=== PATIENT | male | born 1955 | race Caucasian/White ===

== ENCOUNTER → 2017-01-02 | Outpatient (REF) | payer BC ==
[2017-01-02 13:45] LABS: MEAN CORPUSCULAR HEMOGLOBIN 31.5 pg (27.0-33.0); MEAN CORPUSCULAR HGB CONC 33.7 g/dl (32.0-36.5); MEAN CORPUSCULAR VOLUME 93.6 fl (80.0-96.0); RED CELL DISTRIBUTION WIDTH 13.2 % (11.5-14.5); WHITE BLOOD COUNT 6.3 10^3/uL (4.0-10.0)
[2017-01-02 14:23] LABS: ALBUMIN 3.7 GM/DL (3.2-5.2); ALBUMIN/GLOBULIN RATIO 1.06 (1.00-1.93); ALKALINE PHOSPHATASE 57 U/L (45-117); ALT/SGPT 28 U/L (12-78); ANION GAP 5 MEQ/L (8-16); AST/SGOT 18 U/L (15-37); BILIRUBIN,TOTAL 0.6 MG/DL (0.2-1.0); BLOOD UREA NITROGEN 16 MG/DL (7-18); CALCIUM LEVEL 8.8 MG/DL (8.5-10.1); CARBON DIOXIDE LEVEL 32 MEQ/L (21-32); CHLORIDE LEVEL 102 MEQ/L (98-107); CHOLESTEROL LEVEL 180 MG/DL (<200); CREATININE FOR GFR 0.97 MG/DL (0.70-1.30); FREE T4 1.09 NG/DL (0.76-1.46); GLOMERULAR FILTRATION RATE > 60.0 (>56); GLUCOSE, FASTING 155 MG/DL (70-105); POTASSIUM SERUM 4.9 MEQ/L (3.5-5.1); SODIUM LEVEL 139 MEQ/L (136-145); TOTAL PROTEIN 7.2 GM/DL (6.4-8.2); TRIGLYCERIDES LEVEL 79 MG/DL (<150)
== END ==
LOC: M SFHCADAM 09:26
PROVIDERS: ATTEND Family Medicine
DX: E78.2 Mixed hyperlipidemia (principal); E03.4 Atrophy of thyroid (acquired); Z12.5 Encounter for screening for malignant neoplasm of prostate; I10 Essential (primary) hypertension
CPT/HCPCS: 80053; 80061; 84439; 84443; 85027; G0103

== ENCOUNTER → 2017-10-07 | Outpatient (CLI) | payer BC | LOC: M ADAMS 12:32 | DX: M75.40 Impingement syndrome of unspecified shoulder (principal); M19.011 Primary osteoarthritis, right shoulder | CPT/HCPCS: 73030; 85652 ==

== ENCOUNTER → 2017-10-07 | Outpatient (REF) | payer BC ==
[2017-10-07 20:11] LABS: RHEUMATOID FACTOR QUANT < 10.0 IU/ML (<15.0)
[2017-10-07 20:21] LABS: ERYTHROCYTE SEDIMENTATION RATE 6 mm/hr (0-20)
[2017-10-10 00:37] LABS: ANA (HEP2) Negative (.)
== END ==
LOC: M SFHCADAM 12:28
DX: M75.40 Impingement syndrome of unspecified shoulder (principal)
CPT/HCPCS: 85652

== ENCOUNTER → 2019-01-12 | Outpatient (REF) | payer BC | LOC: M LABDRAWP 08:19 | PROVIDERS: ATTEND Internal Medicine Endocrinology, Diabetes & Metabolism | DX: E06.3 Autoimmune thyroiditis (principal) ==

== ENCOUNTER → 2019-01-12 | Outpatient (REF) | payer BC ==
[2019-01-12 11:06] LABS: CHOLESTEROL RISK RATIO 2.764 (<5); FREE T4 0.94 NG/DL (0.76-1.46); THYROID STIMULATING HORMONE 2.66 uIU/ML (0.358-3.740)
[2019-01-12 11:09] LABS: MALB URINE SIEMENS < 5.0 MG/L; MAU/CREAT RATIO 4.5 MCG/MG (0.0-30.0)
== END ==
LOC: M SFHCPLAZ 08:17
PROVIDERS: ATTEND Family Medicine
DX: E03.4 Atrophy of thyroid (acquired) (principal); E10.9 Type 1 diabetes mellitus without complications; E78.2 Mixed hyperlipidemia; Z12.5 Encounter for screening for malignant neoplasm of prostate
CPT/HCPCS: 36415; 80061; 82043; 83036; 84439; 84443; G0103

== ENCOUNTER → 2019-11-25 | Outpatient (REF) | payer BC ==
[2019-11-25 14:16] LABS: ALBUMIN 3.7 GM/DL (3.2-5.2); ALT/SGPT 24 U/L (12-78); BLOOD UREA NITROGEN 21 MG/DL (7-18); CALCIUM LEVEL 9.2 MG/DL (8.8-10.2); CARBON DIOXIDE LEVEL 30 MEQ/L (21-32); CHLORIDE LEVEL 103 MEQ/L (98-107); CHOLESTEROL LEVEL 193 MG/DL (<200); CHOLESTEROL RISK RATIO 2.573 (<5); CREATININE FOR GFR 1.08 MG/DL (0.70-1.30); FREE T4 1.15 NG/DL (0.76-1.46); GLOMERULAR FILTRATION RATE > 60.0 (>49); GLUCOSE, FASTING 61 MG/DL (70-100); HDL CHOLESTEROL 75 MG/DL (>40); LDL CHOLESTEROL 101 MG/DL (<100); NON-HDL-C 118 MG/DL; POTASSIUM SERUM 4.5 MEQ/L (3.5-5.1); SODIUM LEVEL 139 MEQ/L (136-145); TOTAL PROTEIN 7.2 GM/DL (6.4-8.2); TRIGLYCERIDES LEVEL 87 MG/DL (<150)
[2019-11-25 14:51] LABS: BILIRUBIN,TOTAL 0.7 MG/DL (0.2-1.0)
[2019-11-25 14:59] LABS: CREATININE, URINE 59.8 MG/DL; MALB URINE SIEMENS < 5.0 MG/L; MAU/CREAT RATIO 8.3 MCG/MG (0.0-30.0)
[2019-11-25 18:25] LABS: HEMOGLOBIN A1c 7.5 %
== END ==
LOC: M SFHCADAM 13:13
PROVIDERS: ATTEND Family Medicine
DX: E11.9 Type 2 diabetes mellitus without complications (principal); E78.5 Hyperlipidemia, unspecified; E03.9 Hypothyroidism, unspecified

== ENCOUNTER → 2020-09-05 | Outpatient (REF) | payer BC ==
[2020-09-05 13:55] LABS: MALB URINE SIEMENS 5.2 MG/L; MAU/CREAT RATIO 3.9 MCG/MG (0.0-30.0)
[2020-09-05 13:57] LABS: CHOLESTEROL RISK RATIO 2.473 (<5); FREE T4 1.11 NG/DL (0.76-1.46); THYROID STIMULATING HORMONE 1.47 uIU/ML (0.358-3.740)
[2020-09-05 14:22] LABS: HEMOGLOBIN A1c 6.8 %
== END ==
LOC: M PLALAB 08:09
PROVIDERS: ATTEND Family Medicine
DX: E03.4 Atrophy of thyroid (acquired) (principal); E10.9 Type 1 diabetes mellitus without complications; E78.2 Mixed hyperlipidemia; Z12.5 Encounter for screening for malignant neoplasm of prostate

== ENCOUNTER → 2020-12-11 | Outpatient (CLI) | payer BC | LOC: M SOG 10:32 | PROVIDERS: ATTEND Orthopaedic Surgery Sports Medicine | DX: M75.42 Impingement syndrome of left shoulder (principal) ==

== ENCOUNTER → 2021-11-22 | Outpatient (CLI) | payer BC | LOC: M SOG 08:00 | PROVIDERS: ATTEND Orthopaedic Surgery | DX: M25.512 Pain in left shoulder (principal) ==

== ENCOUNTER → 2021-12-03 | Outpatient (CLI) | payer BC | LOC: M RAD 08:02 | PROVIDERS: ATTEND Orthopaedic Surgery | DX: M75.42 Impingement syndrome of left shoulder (principal) ==

== ENCOUNTER → 2021-12-12 | Outpatient (CLI) | payer BC ==
[2021-12-12 10:49] LABS: HEMOGLOBIN A1c 6.5 %
[2021-12-12 10:52] LABS: ALBUMIN 3.8 GM/DL (3.2-5.2); ALT/SGPT 19 U/L (12-78); BILIRUBIN,TOTAL 0.8 MG/DL (0.2-1.0); BLOOD UREA NITROGEN 21 MG/DL (7-18); CALCIUM LEVEL 9.6 MG/DL (8.8-10.2); CARBON DIOXIDE LEVEL 33 MEQ/L (21-32); CHLORIDE LEVEL 103 MEQ/L (98-107); CHOLESTEROL LEVEL 191 MG/DL (<200); CHOLESTEROL RISK RATIO 2.329 (<5); CREATININE FOR GFR 1.05 MG/DL (0.70-1.30); FREE T4 1.01 NG/DL (0.76-1.46); GLOMERULAR FILTRATION RATE > 60.0 (>49); GLUCOSE, FASTING 114 MG/DL (70-100); HDL CHOLESTEROL 82 MG/DL (>40); LDL CHOLESTEROL 93 MG/DL (<100); NON-HDL-C 109 MG/DL; POTASSIUM SERUM 4.4 MEQ/L (3.5-5.1); SODIUM LEVEL 137 MEQ/L (136-145); TOTAL PROTEIN 7.3 GM/DL (6.4-8.2); TRIGLYCERIDES LEVEL 78 MG/DL (<150)
[2021-12-12 11:12] LABS: CREATININE, URINE 77.6 MG/DL; MALB URINE SIEMENS < 5.0 MG/L; MAU/CREAT RATIO 6.4 MCG/MG (0.0-30.0)
== END ==
LOC: M PLALAB 08:15
PROVIDERS: ATTEND Family Medicine
DX: E10.9 Type 1 diabetes mellitus without complications (principal); E78.2 Mixed hyperlipidemia; E03.4 Atrophy of thyroid (acquired); Z12.5 Encounter for screening for malignant neoplasm of prostate
CPT/HCPCS: 36415; 80053; 80061; 82043; 83036; 84439; 84443; G0103

== ENCOUNTER → 2022-09-03 | Outpatient (CLI) | payer BC ==
[2022-09-03 10:19] LABS: APPEARANCE, URINE CLEAR (CLEAR); BACTERIA, URINE AUTO NEGATIVE (NEGATIVE); BILIRUBIN, URINE AUTO NEGATIVE (NEGATIVE); BLOOD, URINE BLOOD NEGATIVE (NEGATIVE); COLOR, URINE YELLOW (YELLOW); GLUCOSE, URINE (UA) AUTO NEGATIVE (NEGATIVE); KETONE, URINE AUTO NEGATIVE (NEGATIVE); LEUKOCYTE ESTERASE, URINE AUTO NEGATIVE (NEGATIVE); NITRITE, URINE AUTO NEGATIVE (NEGATIVE); PROTEIN, URINE AUTO NEGATIVE (NEGATIVE); RBC, URINE AUTO 0 /HPF (0-3); SPECIFIC GRAVITY URINE AUTO 1.017 (1.002-1.035); SQUAMOUS EPITHELIAL CELL UR AU 0 /HPF (0-6); UROBILINOGEN, URINE AUTO 0.2 mg/dL (0.0-2.0); WBC, URINE AUTO 0 /HPF (0-3)
[2022-09-03 10:28] LABS: HEMOGLOBIN A1c 6.8 % (4.0-6.0)
[2022-09-03 10:45] LABS: ALBUMIN 3.5 G/DL (3.2-5.2); ALKALINE PHOSPHATASE 70 U/L (46-116); ALT/SGPT 23 U/L (7.0-40); AST/SGOT 14 U/L (<34); BILIRUBIN,TOTAL 0.6 MG/DL (0.3-1.2); BLOOD UREA NITROGEN 19 MG/DL (9-23); CALCIUM LEVEL 9.2 MG/DL (8.3-10.6); CARBON DIOXIDE LEVEL 28 MMOL/L (20-31); CHLORIDE LEVEL 102 MMOL/L (98-107); CHOLESTEROL LEVEL 167 MG/DL (<200); CREATININE FOR GFR 1.04 MG/DL (0.70-1.30); GLOMERULAR FILTRATION RATE > 60.0 (>49); GLUCOSE, FASTING 123 MG/DL (74-106); HDL CHOLESTEROL 55.5 MG/DL (>40); LDL CHOLESTEROL 91.5 MG/DL (<100); NON-HDL-C 111.5 MG/DL; POTASSIUM SERUM 4.9 MMOL/L (3.5-5.1); SODIUM LEVEL 137 MMOL/L (136-145); TOTAL PROTEIN 6.8 G/DL (5.7-8.2); TRIGLYCERIDES LEVEL 100 MG/DL (<150)
== END ==
LOC: M PLALAB 08:04
PROVIDERS: ATTEND Family Medicine
DX: E10.10 Type 1 diabetes mellitus with ketoacidosis without coma (principal)

== ENCOUNTER → 2022-09-11 | Outpatient (REF) | payer BC ==
[2022-09-11 14:38] LABS: HEMATOCRIT 45.5 % (42.0-52.0); HEMOGLOBIN 14.9 g/dl (13.5-17.5); MEAN CORPUSCULAR HEMOGLOBIN 30.5 pg (27.0-33.0); MEAN CORPUSCULAR HGB CONC 32.7 g/dl (32.0-36.5); MEAN CORPUSCULAR VOLUME 93.2 fl (80.0-96.0); PLATELET COUNT, AUTOMATED 383 10^3/uL (150-450); RED BLOOD COUNT 4.88 10^6/uL (4.30-6.10); WHITE BLOOD COUNT 10.5 10^3/uL (4.0-10.0)
[2022-09-11 14:45] LABS: APPEARANCE, URINE CLEAR (CLEAR); BACTERIA, URINE AUTO NEGATIVE (NEGATIVE); BILIRUBIN, URINE AUTO NEGATIVE (NEGATIVE); BLOOD, URINE BLOOD 1+ (NEGATIVE); COLOR, URINE YELLOW (YELLOW); GLUCOSE, URINE (UA) AUTO 1+ mg/dL (NEGATIVE); KETONE, URINE AUTO NEGATIVE (NEGATIVE); LEUKOCYTE ESTERASE, URINE AUTO NEGATIVE (NEGATIVE); MUCUS, URINE SMALL (NEGATIVE); NITRITE, URINE AUTO NEGATIVE (NEGATIVE); PROTEIN, URINE AUTO NEGATIVE (NEGATIVE); RBC, URINE AUTO 1 /HPF (0-3); SPECIFIC GRAVITY URINE AUTO 1.013 (1.002-1.035); SQUAMOUS EPITHELIAL CELL UR AU 0 /HPF (0-6); UROBILINOGEN, URINE AUTO 0.2 mg/dL (0.0-2.0); WBC, URINE AUTO 0 /HPF (0-3)
[2022-09-11 15:05] LABS: BLOOD UREA NITROGEN 17 MG/DL (9-23); CALCIUM LEVEL 9.5 MG/DL (8.3-10.6); CARBON DIOXIDE LEVEL 29 MMOL/L (20-31); CHLORIDE LEVEL 102 MMOL/L (98-107); CREATININE FOR GFR 0.99 MG/DL (0.70-1.30); GLOMERULAR FILTRATION RATE > 60.0 (>49); GLUCOSE, FASTING 151 MG/DL (74-106); POTASSIUM SERUM 5.3 MMOL/L (3.5-5.1); SODIUM LEVEL 135 MMOL/L (136-145)
== END ==
LOC: M SFHCADAM 10:51
PROVIDERS: ATTEND Family Medicine
DX: Z01.818 Encounter for other preprocedural examination (principal)

== ENCOUNTER → 2023-01-23 | Day surgery (SDC) | payer BC ==
[~2023-01-23] VITALS: Ht 175.3 cm; Wt 88.5 kg
[~2023-01-23] MED LIST: GLYCOPYRROLATE INJ 0.2 MG/ML 2 ML VIAL As Ordered ONE; INSUH10VL SC; LIDOCAINE 2% 100MG/5ML SDV (FOR ANES.) As Ordered ONE; NS 1,000 ML IV ONE; OMEP40CA4 PO; PRAV40TA2 PO; RAMI1CAP26 PO; SYNT150T PO; TRES100I SC; propofoL 200 MG/20 ML VIAL As Ordered ONE
[2023-01-23 08:48] VITALS: TEMP 97.7
[2023-01-23 09:09] VITALS: BP 134/85; O2SAT 100
== END | disposition home or self-care (01) ==
LOC: M OPP 06:55
PROVIDERS: ATTEND Internal Medicine Gastroenterology
DX: Z12.11 Encounter for screening for malignant neoplasm of colon (principal); Z86.010 Personal history of colon polyps; K51.40 Inflammatory polyps of colon without complications; K62.1 Rectal polyp; K51.00 Ulcerative (chronic) pancolitis without complications; E10.65 Type 1 diabetes mellitus with hyperglycemia; Z79.02 Long term (current) use of antithrombotics/antiplatelets; Z79.4 Long term (current) use of insulin; Z79.890 Hormone replacement therapy; Z79.899 Other long term (current) drug therapy

== ENCOUNTER → 2023-07-28 | Outpatient (CLI) | payer BC ==
[~2023-07-28] MED LIST changes: -GLYCOPYRROLATE INJ 0.2 MG/ML 2 ML VIAL As Ordered ONE; -LIDOCAINE 2% 100MG/5ML SDV (FOR ANES.) As Ordered ONE; -NS 1,000 ML IV ONE; +RAMI10CA64 PO; -RAMI1CAP26 PO; -propofoL 200 MG/20 ML VIAL As Ordered ONE
[2023-07-28 10:59] LABS: ALBUMIN 3.7 G/DL (3.2-5.2); ALKALINE PHOSPHATASE 63 U/L (46-116); ALT/SGPT 18 U/L (7.0-40); AST/SGOT 15 U/L (<34); BILIRUBIN,TOTAL 0.9 MG/DL (0.3-1.2); BLOOD UREA NITROGEN 21 MG/DL (9-23); CALCIUM LEVEL 9.1 MG/DL (8.3-10.6); CARBON DIOXIDE LEVEL 30 MMOL/L (20-31); CHLORIDE LEVEL 104 MMOL/L (98-107); CHOLESTEROL LEVEL 175 MG/DL (<200); CHOLESTEROL RISK RATIO 2.74 (<5); CREATININE FOR GFR 1.03 MG/DL (0.70-1.30); CREATININE, URINE 131.4 MG/DL; GLOMERULAR FILTRATION RATE > 60.0 (>49); GLUCOSE, FASTING 125 MG/DL (74-106); HDL CHOLESTEROL 63.8 MG/DL (>40); LDL CHOLESTEROL 94.2 MG/DL (<100); MALB URINE SIEMENS < 3.0 MG/L; MAU/CREAT RATIO 2.2 MCG/MG (0.0-30.0); NON-HDL-C 111.2 MG/DL; POTASSIUM SERUM 4.6 MMOL/L (3.5-5.1); PSA SCREENING 0.74 NG/ML (< 4.00); SODIUM LEVEL 138 MMOL/L (136-145); TOTAL PROTEIN 6.8 G/DL (5.7-8.2); TRIGLYCERIDES LEVEL 85 MG/DL (<150)
[2023-07-28 11:01] LABS: FREE T4 1.18 NG/DL (0.89-1.76); THYROID STIMULATING HORMONE 4.053 uIU/ML (0.55-4.78)
[2023-07-28 11:35] LABS: HEMOGLOBIN A1c 6.6 % (4.0-6.0)
== END ==
LOC: M PLALAB 08:07
PROVIDERS: ATTEND Family Medicine
DX: E10.9 Type 1 diabetes mellitus without complications (principal)

== ENCOUNTER 2024-02-03 06:50 | Day surgery (SDC) | payer BC, MEDICARE ==
[~2024-02-03] VITALS: Ht 175.3 cm; Wt 88.9 kg
[~2024-02-03 06:50] MED LIST changes: +MESA1.2T PO; +NS 250 ML IV ONE; +OMEP40CA5 PO
[2024-02-03] MEDS ORDERED: propofoL 200 MG/20 ML VIAL As Ordered ONE (08:16)
[2024-02-03] MEDS ORDERED: LIDOCAINE 2% 100MG/5ML SDV (FOR ANES.) As Ordered ONE (08:16)
[2024-02-03 08:59] VITALS: TEMP 96.5
[2024-02-03 09:26] VITALS: BP 122/73; O2SAT 99
== END 2024-02-03 09:25 | disposition home or self-care (01) ==
LOC: M OPP 06:50
PROVIDERS: ATTEND Internal Medicine Gastroenterology
DX: K51.00 Ulcerative (chronic) pancolitis without complications (principal); D12.3 Benign neoplasm of transverse colon; Z86.0100 Personal history of colon polyps, unspecified; K63.89 Other specified diseases of intestine; K62.89 Other specified diseases of anus and rectum; E10.9 Type 1 diabetes mellitus without complications; E03.9 Hypothyroidism, unspecified; K21.9 Gastro-esophageal reflux disease without esophagitis; Z79.4 Long term (current) use of insulin; Z79.85 Long-term (current) use of injectable non-insulin antidiabetic drugs; Z79.890 Hormone replacement therapy; Z79.899 Other long term (current) drug therapy; Z80.0 Family history of malignant neoplasm of digestive organs

== ENCOUNTER → 2024-07-27 | Outpatient (CLI) | payer BC ==
[~2024-07-27] MED LIST changes: -NS 250 ML IV ONE
[2024-07-27 10:59] LABS: BASO # 0.1 10^3/uL (0.0-0.2); BASO % 0.6 % (0.0-1.0); EOS # 0.3 10^3/uL (0.0-0.5); EOS % 2.6 % (0.0-3.0); HEMATOCRIT 44.1 % (42.0-52.0); HEMOGLOBIN 14.7 g/dl (13.5-17.5); LYMPH % 43.6 % (24.0-44.0); MEAN CORPUSCULAR HEMOGLOBIN 31.1 pg (27.0-33.0); MEAN CORPUSCULAR HGB CONC 33.3 g/dl (32.0-36.5); MEAN CORPUSCULAR VOLUME 93.4 fl (80.0-96.0); MONO # 0.9 10^3/uL (0.0-0.8); NEUTROPHILS # 5.1 10^3/uL (1.5-8.5); PLATELET COUNT, AUTOMATED 338 10^3/uL (150-450); RED BLOOD COUNT 4.72 10^6/uL (4.30-6.10); WHITE BLOOD COUNT 11.4 10^3/uL (4.0-10.0)
[2024-07-27 11:11] LABS: CREATININE, URINE 182.3 MG/DL; MALB URINE SIEMENS < 3.0 MG/L
[2024-07-27 11:13] LABS: HEMOGLOBIN A1c 6.9 % (4.0-6.0)
[2024-07-27 11:19] LABS: PSA SCREENING 3.22 NG/ML (< 4.00)
[2024-07-27 11:22] LABS: ALBUMIN 3.6 G/DL (3.2-5.2); BILIRUBIN,TOTAL 0.8 MG/DL (0.3-1.2); CALCIUM LEVEL 9.3 MG/DL (8.3-10.6); CHOLESTEROL RISK RATIO 2.73 (<5); CREATININE FOR GFR 1.09 MG/DL (0.70-1.30); GLOMERULAR FILTRATION RATE 74.4 (>49); HDL CHOLESTEROL 62.5 MG/DL (>40); LDL CHOLESTEROL 91.5 MG/DL (<100); NON-HDL-C 108.5 MG/DL; POTASSIUM SERUM 4.8 MMOL/L (3.5-5.1); TOTAL PROTEIN 6.9 G/DL (5.7-8.2)
[2024-07-27 11:23] LABS: FREE T4 1.19 NG/DL (0.89-1.76); THYROID STIMULATING HORMONE 6.876 uIU/ML (0.55-4.78)
== END ==
LOC: M PLALAB 07:36
PROVIDERS: ATTEND Family Medicine
DX: E78.2 Mixed hyperlipidemia (principal)

== ENCOUNTER → 2025-01-20 | Outpatient (REF) | payer BC ==
[~2025-01-20] MED LIST changes: -PRAV40TA2 PO; +PRAV40TA85 PO
[2025-01-20 12:01] LABS: ALT/SGPT 15.0 U/L (7.0-40); AST/SGOT 15.0 U/L (<34); CALCIUM LEVEL 9.3 MG/DL (8.3-10.6); CARBON DIOXIDE LEVEL 30.0 MMOL/L (20-31); CHLORIDE LEVEL 103.0 MMOL/L (98-107); CHOLESTEROL LEVEL 169.0 MG/DL (<200); CHOLESTEROL RISK RATIO 2.39 (<5); CREATININE FOR GFR 1.04 MG/DL (0.70-1.30); GLOMERULAR FILTRATION RATE 78.7 (>49); LDL CHOLESTEROL 83.7 MG/DL (<100); NON-HDL-C 98.5 MG/DL; POTASSIUM SERUM 4.6 MMOL/L (3.5-5.1); PROSTATIC SPECIFIC AG MONITOR 1.4 NG/ML (< 4.00); SODIUM LEVEL 140.0 MMOL/L (136-145); TRIGLYCERIDES LEVEL 74.0 MG/DL (<150)
[2025-01-20 12:05] LABS: FREE T4 1.41 NG/DL (0.89-1.76)
[2025-01-20 12:08] LABS: PLATELET COUNT, AUTOMATED 325 10^3/uL (150-450)
[2025-01-20 12:12] LABS: ESTIMATED AVERAGE GLUCOSE 157.0 MG/DL (60-110)
[2025-01-20 12:24] LABS: ATYPICAL LYMPH 29 % (0-5); EOSINOPHILS 3 % (0-3); LYMPHOCYTES 37 % (16-44); MONOCYTES 10 % (0-5); NEUTROPHILS 20 % (28-66); PLATELET CLUMPS SMALL AMT; PLATELET ESTIMATE NORMAL (NORMAL)
== END ==
LOC: M SFHCADAM 11:25
PROVIDERS: ATTEND Family Medicine
DX: E03.4 Atrophy of thyroid (acquired) (principal); E78.2 Mixed hyperlipidemia; D72.829 Elevated white blood cell count, unspecified; E10.9 Type 1 diabetes mellitus without complications; R97.20 Elevated prostate specific antigen [PSA]

== ENCOUNTER → 2025-01-25 | Outpatient (CLI) | payer BC ==
[2025-01-25 15:12] LABS: PLATELET COUNT, AUTOMATED 342 10^3/uL (150-450)
[2025-01-25 16:56] LABS: ATYPICAL LYMPH 15 % (0-5); EOSINOPHILS 1 % (0-3); LYMPHOCYTES 20 % (16-44); MONOCYTES 3 % (0-5); NEUTROPHILS 61 % (28-66); PLATELET ESTIMATE NORMAL (NORMAL)
[2025-01-25 18:02] LABS: MONO REFLEX EBV COMP NEGATIVE (NEGATIVE)
== END ==
LOC: M LAB 14:14
PROVIDERS: ATTEND Family Medicine
DX: D72.820 Lymphocytosis (symptomatic) (principal)

== ENCOUNTER → 2025-01-26 | Outpatient (REF) | payer BC | LOC: M LAB REF 10:04 | PROVIDERS: ATTEND Family Medicine | DX: D72.820 Lymphocytosis (symptomatic) (principal) ==

== ENCOUNTER → 2025-02-11 | Outpatient (CLI) | payer BC ==
[2025-02-11 10:55] LABS: BASO # 0.0 10^3/uL (0.0-0.2); BASO % 0.3 % (0.0-1.0); EOS # 0.1 10^3/uL (0.0-0.5); EOS % 1.4 % (0.0-3.0); LYMPH # 3.4 10^3/uL (1.5-5.0); LYMPH % 37.7 % (24.0-44.0); MONO # 0.6 10^3/uL (0.0-0.8); MONO % 6.4 % (2.0-8.0); NEUTROPHILS # 4.9 10^3/uL (1.5-8.5); NEUTROPHILS % 54.0 % (36.0-66.0); PLATELET COUNT, AUTOMATED 315 10^3/uL (150-450)
== END ==
LOC: M LAB 09:47
PROVIDERS: ATTEND Family Medicine
DX: D72.820 Lymphocytosis (symptomatic) (principal)

== ENCOUNTER → 2025-02-11 | Outpatient (REF) | payer BC | LOC: M SFHCADAM 09:10 | PROVIDERS: ATTEND Family Medicine | DX: D72.820 Lymphocytosis (symptomatic) (principal) ==